=== PATIENT | female | born 1965 ===

== ENCOUNTER 2017-08-22 15:21 | Emergency (ER) | payer OTHER ==
[2017-08-22 15:40] VITALS: O2SAT 100
--- NOTE | 2017-08-22 15:51 | C.PDOC ---
History Of Present Illness Patient presents to ED for evaluation of right foot pain for the past 2 days. She denies any recent injuries or trauma to her foot; patient does report she was injured by a broken piece of glass on her right foot 4 years ago. She denies any weakness, numbness or tingling to her right foot. Patient reports she took some diclofenac with some relief. She has no other medical complaints. Time Seen by Provider: 08/22/17 15:47 Chief Complaint (Nursing): Lower Extremity Problem/Injury History Per: Patient History/Exam Limitations: no limitations Onset/Duration Of Symptoms: Days Current Symptoms Are (Timing): Still Present Additional History Per: Patient - Ankle/Foot Alleviating Factor(s): OTC Pain Medication (mild) Past Medical History Reviewed: Historical Data, Nursing Documentation, Vital Signs Vital Signs: Last Vital Signs Temp 98.0 F 08/22/17 16:30 Pulse 75 08/22/17 16:30 Resp 16 08/22/17 16:30 BP 141/92 H 08/22/17 16:30 Pulse Ox 100 08/22/17 17:31 - Medical History PMH: HTN Surgical History: No Surg Hx Family History: States: No Known Family Hx - Social History Hx Alcohol Use: No Hx Substance Use: No - Immunization History Hx Tetanus Toxoid Vaccination: Yes Hx Influenza Vaccination: Yes Hx Pneumococcal Vaccination: No Review Of Systems Except As Marked, All Systems Reviewed And Found Negative. Musculoskeletal: Positive for: Foot Pain (right) Physical Exam - Physical Exam Appears: Non-toxic, No Acute Distress Skin: Normal Color Head: Atraumatic, Normacephalic Eye(s): bilateral: Normal Inspection Neck: Normal ROM Chest: Symmetrical Extremity: Normal ROM (normal ROM of right foot), Tenderness (mild tenderness to right forefoot), No Deformity, No Swelling, Other (scar to right dorsal foot) Neurological/Psych: Oriented x3, Normal Speech ED Course And Treatment O2 Sat by Pulse Oximetry: 100 (RA) Pulse Ox Interpretation: Normal Medical Decision Making Medical Decision Making: Impression: Right foot pain Plan: -- XR Right foot XR Right Foot IMPRESSION:No acute fracture or dislocation identified. Degenerative changes seen at the forefoot predominantly and a moderate plantar calcaneal spur is identified. Patient remained well in no distress. She is ambulatory without discomfort. Provide copy of xray report and recommend foot exercises and analgesics as needed. Can follow up outpatient in clinic with podiatry Disposition Counseled Patient/Family Regarding: Diagnosis, Need For Followup, Rx Given - Disposition Referrals: Podiatry Clinic [Outside] Disposition: HOME/ ROUTINE Disposition Time: 16:30 Condition: GOOD Additional Instructions: radiografa muestra espoln calcneo, sin fractura aplicar voltaren gel a los pies segn sea necesario para el dolor seguimiento con podiatra si el dolor persiste Prescriptions: Diclofenac Sodium [Voltaren] 100 gm TP DAILY PRN #1 gel..gram. 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 - Scribe Statement The provider has reviewed the documentation as recorded by the Hi Lange Provider Scribe Attestation: All medical record entries made by the Hi were at my direction and personally dictated by me. I have reviewed the chart and agree that the record accurately reflects my personal performance of the history, physical exam, medical decision making, and the department course for this patient. I have also personally directed, reviewed, and agree with the discharge instructions and disposition.
--- NOTE | 2017-08-22 16:17 | RAD ---
PROCEDURE: Right Foot Radiographs. HISTORY: pain forefoot, no injury COMPARISON: None. FINDINGS: BONES: No interval acute cardiopulmonary disease appreciated. JOINTS: Degenerative cortical sclerosis appreciated throughout the interphalangeal joints diffusely, compatible with mild degenerative joint disease. No subluxation or dislocation appreciable. SOFT TISSUES: Normal. OTHER FINDINGS: Moderate plantar calcaneal spur identified. IMPRESSION: No acute fracture or dislocation identified. Degenerative changes seen at the forefoot predominantly and a moderate plantar calcaneal spur is identified.
[2017-08-22 16:47] VITALS: BP 141/92; PULSE 75; RESP 16; TEMP 98
== END 2017-08-22 16:47 | disposition home or self-care (01) ==
LOC: C.ER 15:21
DX: M77.31 Calcaneal spur, right foot (principal); M79.671 Pain in right foot